=== PATIENT | female | born 1985 | race Caucasian/White ===

== ENCOUNTER → 2017-08-05 12:59 | Outpatient (CLI) | payer BC ==
[2015-09-05 06:05] VITALS: BMI 31.5
[~2017-08-05 12:59] MED LIST: CYMBALTA20 MG PO; CYMBALTA60 MG PO; HYDROCODONE-APA1 TAB PO; INDERAL10 MG PO; PARAFON FORTE500 MG PO; VALIUM10 MG PO; VICOPROFEN 7.5/1 TAB PO; VITAMIN D31000 UNI2; ZANAFLEX4 MG PO; ZOFRAN4 MG PO
== END | disposition home or self-care (01) ==
LOC: D.MRI 12:59
DX: G43.909 Migraine, unspecified, not intractable, without status migrainosus (principal)

== ENCOUNTER → 2017-12-16 09:26 | Outpatient (CLI) | payer BC ==
[2015-09-05 06:05] VITALS: BMI 31.5
== END | disposition home or self-care (01) ==
LOC: D.MRI 09:26
DX: G52.8 Disorders of other specified cranial nerves (principal)

== ENCOUNTER → 2018-05-20 15:32 | Outpatient (CLI) | payer BC ==
[2015-09-05 06:05] VITALS: BMI 31.5
== END | disposition home or self-care (01) ==
LOC: D.CT 15:32
DX: Q07.00 Arnold-Chiari syndrome without spina bifida or hydrocephalus (principal)